=== PATIENT | female | born 2000 | race Caucasian/White ===

== ENCOUNTER 2023-12-06 16:31 | Emergency (ER) | payer BC, SELFPAY ==
[2023-12-06 16:34] VITALS: BP 134/74
[2023-12-06 17:05] LABS: % Basophils 0.4 % (0-2); % Eosinophils 0.7 % (0-6); % Immature Granulocytes 0.2 % (0-0.5); % Lymphocytes 13.8 % (20.5-51.1); % Monocytes 8.5 % (1.7-9.3); % Neutrophils 76.4 % (42.2-75.2); Absolute Lymphocytes 0.6 10^3/uL (1.2-3.4); Absolute Monocytes 0.4 10^3/uL (0.1-0.6); Absolute Neutrophils 3.5 10^3/uL (1.4-6.5); Hematocrit 39.6 % (37.0-47.0); Hemoglobin 13.4 g/dL (12.0-16.0); Mean Corp Hgb Conc. 33.8 g/dL (33.0-37.0); Mean Corpuscular Hgb 29.6 pg (27.0-31.0); Mean Corpuscular Volume 87.6 fL (81.0-99.0); Mean Platelet Volume 9.1 fL (7.4-10.4); Nucleated Red Blood Cells % 0 %; Platelet Count 196 10^3/uL (130-400); Red Blood Cell Count 4.52 10^6/uL (4.20-5.40); Red Cell Dist. Width 12.8 % (11.5-14.5); White Blood Cell Count 4.6 10^3/uL (4.8-10.8)
[2023-12-06 17:12] LABS: ALT (SGPT) 18 U/L (0-35); AST (SGOT) 25 U/L (14-36); Albumin 4.1 g/dl (3.5-5.0); Alkaline Phosphatase 39 U/L (38-126); Blood Urea Nitrogen 11 mg/dl (7-17); Calcium 9.4 mg/dl (8.4-10.2); Carbon Dioxide 26 mmol/L (22-30); Chloride 101 mmol/L (98-107); Glucose 102 mg/dl (70-99); Potassium 4.5 mmol/L (3.5-5.1); Sodium 136 mmol/L (135-145); Total Bilirubin 0.4 mg/dl (0.2-1.3); Total Protein 6.8 g/dl (6.3-8.2); eGFR > 60.00
[2023-12-06 17:16] LABS: APTT 35.5 Sec (23.4-35.0)
[2023-12-06 17:22] LABS: Troponin I < 0.012 ng/ml
--- NOTE | 2023-12-06 18:18 | ED.GENMED ---
History of Present Illness
General
Chief Complaint: Breathing Problem
Time Seen by Provider: 12/06/23 18:08
Travel History
Have you had any contact with someone who has COVID-19?: Yes
Comment: self
Do you have any symptoms of coronavirus? Fever > 100 degrees, chills, cough, shortness of breath, sore throat, loss of taste or smell, muscle aches, or headache?: Yes
Symptoms:: SOB, + covid
History of Present Illness
History of Present Illness:
23-year-old female with history of asthma presents to the emergency department for evaluation of shortness of breath and chest tightness. She was diagnosed with COVID just prior to arrival at her primary care's office however her primary care
requested her to come to the emergency department for evaluation of a possible blood clot in the lungs. Patient denies use of exogenous hormones and denies any recent immobilization or travel. She denies any overt chest pain. No pleuritic nature
to the symptoms. No fever, chills or sweats. Denies any leg swelling or calf cramping.
Review of Systems
Review of Systems
Allergies reviewed?: Yes
All Other Systems: ROS reviewed and negative except as documented in HPI and ROS
Phy Exam
Physical Exam
Physical Exam:
GEN: Well appearing, NAD, WDWN
HEENT: Oral mucosa moist, no scleral icterus
Cardiac: Tachycardic, regular, no murmur
Lung: No respiratory distress, no tachypnea, lungs clear to auscultation
MSK: No gross deformity or injuries
Skin: Good color, no pallor or jaundice, no rashes
Neuro: AO x3, moves all extremities freely
Psych: Calm, cooperative
Course
Orders/Labs/Results
Orders:
Orders
12/06/23 16:38
ECG [Electrocardiogram (*1)] Urgent
Reason for Study: Shortness of Breath
EKG- Treatment ONCE
12/06/23 16:47
Complete Blood Count/With Diff Urgent
Comprehensive Metabolic Panel Urgent
D-Dimer Urgent
Comment: ADD ON
PTT Urgent
Troponin I Urgent
12/06/23 18:16
Add On- LAB Urgent
Tests Added?: D dimer
Abnormal Lab Results
12/06/23
16:47
WBC 4.6 L 10^3/uL
(4.8-10.8)
Absolute Lymphs (auto) 0.6 L 10^3/uL
(1.2-3.4)
Neutrophils % 76.4 H %
(42.2-75.2)
Lymphocytes % 13.8 L %
(20.5-51.1)
APTT 35.5 H Sec
(23.4-35.0)
Creatinine 0.5 L mg/dL
(0.6-1.0)
Glucose 102 H mg/dl
(70-99)
12/06/23 16:47
12/06/23 16:47
Vital Signs
Initial and Last Documented VS:
Initial Vital Signs
Temp Pulse Resp BP Pulse Ox
98.2 F 115 20 134/74 99
12/06/23 16:34 12/06/23 16:34 12/06/23 16:34 12/06/23 16:34 12/06/23 16:34
Last Documented Vital Signs
Temp Pulse Resp BP Pulse Ox
98.2 F 115 20 134/74 99
12/06/23 16:34 12/06/23 16:34 12/06/23 16:34 12/06/23 16:34 12/06/23 16:34
MDM/Problems Addressed
MDM/Problems Addressed:
Patient's workup was unremarkable including a negative D-dimer. Her symptoms are likely attributable to COVID-19, I discussed the risk and benefit of Paxlovid and the patient does not feel it is necessary to initiate this, I agree with this
assessment. Discussed supportive care
Comment
Comment:
EKG independently interpreted by me shows a sinus tachycardia at a rate of [address] changes concerning for ischemia, QTc of 448
*Critical Care Note
Total Time (30-74mins, 75-104mins- exclusive of procedures): Not Applicable
ED Attending Note
-
Portions of this chart may have been created with voice recognition software.� Occasional wrong word or��sound alike� substitutions may have occurred due to the inherent limitations of voice recognition software.
Discharge Plan
Departure
Patient Disposition: Home (Routine Discharge)
Date of Disposition: 12/06/23
Time of Disposition: 19:06
Patient with high blood pressure during this ER visit?: No
Discharge Problem:
COVID-19
Instructions: COVID-19 (DC)
Prescriptions:
No Action
albuterol sulfate 2.5 MG/3 ML solution for nebulization
2.5 mg inhalation R Q4HPRN PRN (Reason: asthma)
prednisone 20 MG tablet
20 mg PO DAILY Qty: 4 0RF
Referrals:
Lisa Fournier CRNP [Family Provider] -
Interventions
Interventions:
*Risk Screen - Suicide Last Done: 12/06/23 16:34
*General Assessment Last Done: 12/06/23 16:34
*Neglect/Abuse Screening Last Done: 12/06/23 16:34
ED- Fall Risk Assessment Last Done: 12/06/23 17:59
*Nursing Disposition Last Done: 12/06/23 19:46
ED- Cardiac Assessment Last Done: 12/06/23 18:01
ED- Pulmonary Assessment Last Done: 12/06/23 18:01
Discharge Date and Time
Discharge Date/Time: 12/06/23 19:47
[2023-12-06 18:54] LABS: D-Dimer < 0.27 ug/mlFEU (0.00-0.50)
== END 2023-12-06 19:47 | disposition home or self-care (01) ==
LOC: EMR 16:31
PROVIDERS: Emergency Medicine; EMERGENCY PHYSICIAN Emergency Medicine; FAMILY PHYSICIAN Nurse Practitioner Adult Health
DX: U07.1 COVID-19 (principal)
CPT/HCPCS: 99284; 80053; 84484; 85025; 85379; 85730; 93005